=== PATIENT | female | born 1980 | race Caucasian/White ===

== ENCOUNTER 2025-09-07 17:06 | Emergency (ER) | payer OTHER, SELFPAY ==
[2025-09-07 17:16] VITALS: BP 165/116
[2025-09-07 19:48] VITALS: BMI 23.0
--- NOTE | 2025-09-07 23:12 | ED.GENMED ---
History of Present Illness
General
Chief Complaint: Crisis Evaluation
Source: patient
Exam Limitations: none
Time Seen by Provider: 09/07/25 20:25
Nursing documentation reviewed up to this point in time: agreed with
History of Present Illness
History of Present Illness:
Patient to the emergency department for crisis evaluation. She reports increasing anxiety and depression. She was on Celexa for a long period of time but then found that the medication was no longer helpful to her. Celexa was tapered down and she
was placed on Lexapro. She has been taking Lexapro 10 mg for the past month without any improvement. She called her PCP today and spoke with the on-call provider who advised her to stop the medication if she felt that it was not being helpful to
her. She comes to the emergency department because she feels that her anxiety and depression is escalating. She denies SI she denies HI.
Past History
Past History
ED Past Medical History: Other (uti)
ED Past Surgical History: None
Social History
Alcohol: Occasional
Personal:
Living: with family
Employment: Employed
Review of Systems
Review of Systems
Allergies reviewed?: Yes
All Other Systems: ROS reviewed and negative except as documented in HPI and ROS
Constitutional: Reports no symptoms
EENT: Reports no symptoms
Respiratory: Reports no symptoms
Cardiac: Reports no symptoms
ABD/GI: Reports no symptoms
: Reports no symptoms
Musculoskeletal: Reports no symptoms
Skin: Reports no symptoms
Neurological: Reports no symptoms
Psychiatric: Reports depression and anxiety
Phy Exam
General Physical Exam
General Presentation: mild distress
General age: appears stated age
General Habitus: normal
General Mental: alert
Musculoskeletal Exam
Musculoskeletal Exam: full ROM
Skin Exam
Skin Exam: normal color
Psychiatric Exam
Psychiatric Exam: anxious and depressed
Course
Orders/Labs/Results
Orders:
Orders
09/07/25 17:20
Crisis Consult Urgent
Reason for Consult: worsening depression
Vital Signs
Initial and Last Documented VS:
Initial Vital Signs
Temp Pulse Resp BP Pulse Ox
98.8 F 116 18 165/116 99
09/07/25 17:16 09/07/25 17:16 09/07/25 17:16 09/07/25 17:16 09/07/25 17:16
Last Documented Vital Signs
Temp Pulse Resp BP Pulse Ox
98.8 F 116 18 165/116 99
09/07/25 17:16 09/07/25 17:16 09/07/25 17:16 09/07/25 17:16 09/07/25 17:16
*Pulse Oximetry
SaO2: 99
Oxygen Mode of Delivery: Room air
Patient hypoxic: no
*Critical Care Note
Total Time (30-74mins, 75-104mins- exclusive of procedures): Not Applicable
Update Note
Update Note:
Patient to the emergency department for crisis evaluation for worsening anxiety and depression. She denies SI she denies HI. She was evaluated by crisis and was given information for outpatient follow-up. As per crisis she has declined inpatient
services. Patient is agreeable to following up with outpatient therapy. She reports that she is going to stop her Lexapro as recommended by the on-call provider from her primary care practice but she feels this medication is not helpful for her.
I have agreed prescription for Ativan 0.5 mg 3 times daily as needed - 5 doses total. She will be discharged home tonight and will follow-up with her primary care provider tomorrow as well as schedule her appointment with outpatient therapy. She
was given instructions on signs and symptoms to return to the emergency department and she is agreeable to this plan.
ED Attending Note
-
Portions of this chart may have been created with voice recognition software.� Occasional wrong word or��sound alike� substitutions may have occurred due to the inherent limitations of voice recognition software.
Discharge Plan
Departure
Patient Disposition: Home (Routine Discharge)
Date of Disposition: 09/07/25
Time of Disposition: 21:37
Patient with high blood pressure during this ER visit?: No
Condition: Good
Covid-19: Not Applicable
Discharge Problem:
Anxiety, Depression
Prescriptions:
New
lorazepam [Ativan] 0.5 mg tablet
0.5 mg PO TID PRN (Reason: anxiety) Qty: 5 0RF
No Action
oxycodone-acetaminophen 5 MG/325 MG tablet
1 tab PO Q4HPRN PRN (Reason: pain) Qty: 6 0RF
tamsulosin 0.4 MG capsule
0.4 mg PO DAILY Qty: 6 0RF
Referrals:
UNKNOWN - PT NOT,INTERVIEWE [Family Provider]
Activity Restrictions/Additional Instructions:
Follow-up with your primary care provider in the a.m. Contact therapist in the a.m. to schedule an appointment. Return to the emergency department for any changes in/worsening of your symptoms.
Interventions
Interventions:
*General Assessment Last Done: 09/07/25 17:19
*Neglect/Abuse Screening Last Done: 09/07/25 17:19
*ED COVID-19 Vaccine History Last Done: 09/07/25 17:19
*ED Influenza Vaccine History Last Done: 09/07/25 17:19
[facility] Risk Assessment Tool Last Done: 09/07/25 19:47
*Risk Screen - Suicide (C-SSRS) Last Done: 09/07/25 17:19
*Nursing Disposition Last Done: 09/07/25 22:06
ED-Psychological Assessment Last Done: 09/07/25 19:48
Discharge Date and Time
Discharge Date/Time: 09/07/25 22:08
Print Language: VIET[place]ESE
== END 2025-09-07 22:08 | disposition home or self-care (01) ==
LOC: EMR 17:06
PROVIDERS: EMERGENCY PHYSICIAN Emergency Medicine
DX: F41.9 Anxiety disorder, unspecified (principal); F32.A Depression, unspecified
CPT/HCPCS: 99283